=== PATIENT | male | born 1945 | race Caucasian/White ===

== ENCOUNTER 2017-05-10 07:00 | Inpatient (IN) | payer MEDICARE ==
[2017-04-25 08:46] VITALS: BP 166/83
[~2017-05-10] VITALS: Ht 185.4 cm; Wt 108.6 kg
[~2017-05-10 07:00] MED LIST: ASPI-515 PO; CALC-500 PO; CIPR500T3 PO; CITA20TA5 PO; FOLI1TAB5 PO; GEMF600T3 PO; HYDR12.58 PO; LOSA50TA6 PO; METO25TA35 PO; METO50TA82 PO; METR500T PO
[2017-05-10] MEDS ORDERED: LACTATED RINGERS 1,000 ML IV SCH (07:59)
[2017-05-10] MEDS ORDERED: LIDOCAINE 1%, 2ML SQ PRN (08:00)
[2017-05-10] MEDS ORDERED: LIDOCAINE 1%, 2ML ONE (08:05)
[2017-05-10] MEDS ORDERED: FENTANYL PF 100 MCG/2ML ONE ×3 (08:24→11:16)
[2017-05-10] MEDS ORDERED: MIDAZOLAM 1 MG/ML, 2ML ONE (08:25)
[2017-05-10] MEDS ORDERED: BUPIVACAINE/PF 0.5% ONE (08:59)
[2017-05-10] MEDS ORDERED: EPINEPHRINE 1 MG/ML, 1ML ONE (08:59)
[2017-05-10] MEDS ORDERED: CEFAZOLIN 1,000 MG ONE ×2 (09:11)
[2017-05-10] MEDS ORDERED: ROCURONIUM 10 MG/ML ONE ×2 (09:11→09:16)
[2017-05-10] MEDS ORDERED: PROPOFOL 10 MG/ML, 20ML ONE (09:11)
[2017-05-10] MEDS ORDERED: hydrALAzine 20 MG/ML, 1ML ONE ×2 (09:16→10:12)
[2017-05-10] MEDS ORDERED: hydrALAzine 20 MG/ML, 1ML IV PRN (09:30)
[2017-05-10] MEDS ORDERED: MEPERIDINE/PF 25MG/0.5ML IVPush PRN (09:30)
[2017-05-10] MEDS ORDERED: LABETALOL 5MG/ML, 20ML IV PRN (09:30)
[2017-05-10] MEDS ORDERED: PROMETHAZINE 25 MG/ML, 1ML IV PRN (09:30)
[2017-05-10] MEDS ORDERED: ONDANSETRON 2MG/ML, 2ML IVPush PRN (09:30)
[2017-05-10] MEDS ORDERED: HYDROmorphone 1 MG/ML, 1ML IV PRN (09:30)
[2017-05-10] MEDS ORDERED: OXYcodone 5 MG/5 ML ORAL.SOL UDC PO PRN (09:30)
[2017-05-10] MEDS ORDERED: ACETAMINOPHEN 325 MG TABLET PO PRN (09:30)
[2017-05-10] MEDS ORDERED: NEOSTIGMINE 1 MG/ML, 10ML ONE (09:42)
[2017-05-10] MEDS ORDERED: GLYCOPYRROLATE 0.4 MG/2 ML, 2ML ONE ×2 (09:42→11:18)
[2017-05-10] MEDS ORDERED: KETOROLAC 30 MG/1 ML ONE (11:05)
[2017-05-10] MEDS ORDERED: ACETAMINOPHEN 650 MG/20.3 ML UDC ONE (11:16)
[2017-05-10] MEDS ORDERED: OXYcodone 5 MG/5 ML ORAL.SOL UDC ONE (11:17)
[2017-05-10] MEDS: FENTANYL PF 100 MCG/2ML IV PRN ×3 (11:20→11:46)
[2017-05-10] MEDS ORDERED: KETOROLAC 30 MG/1 ML IVPush ONE (11:30)
[2017-05-10] MEDS ORDERED: GLYCOPYRROLATE 0.2MG/1ML, 5ML IVPush ONE (11:30)
== END 2017-05-10 14:30 | disposition home or self-care (01) | DRG 940 ==
LOC: ORIP 07:00
PROVIDERS: ADMIT Surgery; ATTEND Surgery
PROC: 0DP64CZ Removal of Extraluminal Device from Stomach, Percutaneous Endoscopic Approach (ICD-10-PCS; principal; 2017-05-10 09:00)
DX: Z98.84 Bariatric surgery status (principal); K91.30 Postprocedural intestinal obstruction, unspecified as to partial versus complete; I11.9 Hypertensive heart disease without heart failure; E78.00 Pure hypercholesterolemia, unspecified; K95.09 Other complications of gastric band procedure; F32.9 Major depressive disorder, single episode, unspecified; Y83.8 Other surgical procedures as the cause of abnormal reaction of the patient, or of later complication, without mention of misadventure at the time of the procedure; Z90.49 Acquired absence of other specified parts of digestive tract; Z91.041 Radiographic dye allergy status; Y92.89 Other specified places as the place of occurrence of the external cause
CPT/HCPCS: J0171; J0690; J1885; J2250; J2704; J2710; J3010; J3490; J0360; J7120

== ENCOUNTER → 2017-10-02 | Outpatient (CLI) | payer MEDICARE | END | disposition home or self-care (01) | LOC: CFH 13:32 | PROVIDERS: ATTEND Surgery | DX: K43.9 Ventral hernia without obstruction or gangrene (principal) | CPT/HCPCS: 74176 ==

== ENCOUNTER → 2017-10-05 | Outpatient (CLI) | payer MEDICARE ==
[2017-10-05 10:37] LABS: ALANINE AMINOTRANSFERASE 38 U/L (12-78); ALKALINE PHOSPHATASE 88 U/L (45-117); ANION GAP 8 mmol/L (5-15); BILIRUBIN,TOTAL 0.6 mg/dL (0.2-1.0); CALCIUM 8.8 mg/dL (8.5-10.1); CHLORIDE 108 mmol/L (98-107)
[2017-10-05 10:38] LABS: ALBUMIN 4.1 g/dL (3.4-5.0); TOTAL PROTEIN 7.2 g/dL (6.4-8.2)
== END | disposition home or self-care (01) ==
LOC: STAR 09:22
PROVIDERS: ATTEND Surgery
DX: Z01.818 Encounter for other preprocedural examination (principal); I44.5 Left posterior fascicular block; R94.31 Abnormal electrocardiogram [ECG] [EKG]
CPT/HCPCS: 36415; 80053; 93005

== ENCOUNTER 2017-10-10 06:52 | Inpatient (IN) | payer MEDICARE ==
[~2017-10-10] VITALS: Ht 185.4 cm; Wt 121.0 kg
[2017-10-10] MEDS ORDERED: LACTATED RINGERS 1,000 ML IV SCH (07:04)
[2017-10-10] MEDS ORDERED: GABAPENTIN 300 MG CAPSULE PO STA (07:14)
[2017-10-10] MEDS ORDERED: ACETAMINOPHEN 500 MG TABLET PO STA (07:14)
[2017-10-10] MEDS ORDERED: FENTANYL PF 100 MCG/2ML ONE ×2 (08:26→12:14)
[2017-10-10] MEDS ORDERED: SUCCINYLCHOLINE 20 MG/ML, 10ML ONE (08:27)
[2017-10-10] MEDS ORDERED: PROPOFOL 10 MG/ML, 20ML ONE ×2 (08:27→09:21)
[2017-10-10] MEDS ORDERED: NEOSTIGMINE 1 MG/ML, 10ML ONE (08:27)
[2017-10-10] MEDS ORDERED: DEXAMETHASONE 4 MG/ML, 1ML ONE (08:27)
[2017-10-10] MEDS ORDERED: ONDANSETRON 2MG/ML, 2ML ONE (08:27)
[2017-10-10] MEDS ORDERED: GLYCOPYRROLATE 0.2MG/1ML, 5ML ONE (08:27)
[2017-10-10] MEDS ORDERED: CEFAZOLIN 1,000 MG ONE ×2 (08:27→09:21)
[2017-10-10] MEDS ORDERED: ROCURONIUM 10 MG/ML,10ML ONE (08:27)
[2017-10-10] MEDS ORDERED: KETOROLAC 30 MG/1 ML ONE ×2 (08:31→17:08)
[2017-10-10] MEDS ORDERED: BACITRACIN 50,000 UNIT ONE (08:56)
[2017-10-10] MEDS ORDERED: EPINEPHRINE 1 MG/ML, 1ML ONE (08:56)
[2017-10-10] MEDS ORDERED: BUPIVACAINE/PF 0.5% ONE (08:56)
[2017-10-10] MEDS ORDERED: LIDOCAINE 1%, 20ML ONE (09:21)
[2017-10-10] MEDS ORDERED: BACITRACIN 50,000 UNIT IMPLANT ONE (09:51)
[2017-10-10] MEDS ORDERED: BUPIVACAINE/PF 0.5% INFIL ONE (09:52)
[2017-10-10] MEDS ORDERED: EPINEPHRINE 1 MG/ML, 1ML INFIL ONE (09:54)
[2017-10-10] MEDS ORDERED: PROMETHAZINE 12.5 MG SUPP PR PRN (10:00)
[2017-10-10] MEDS ORDERED: HYDROmorphone 1 MG/ML, 1ML IV PRN (10:00)
[2017-10-10] MEDS ORDERED: ONDANSETRON 2MG/ML, 2ML IVPush PRN ×2 (10:00→19:30)
[2017-10-10] MEDS ORDERED: MEPERIDINE/PF 25MG/0.5ML IVPush PRN (10:00)
[2017-10-10] MEDS ORDERED: METOPROLOL 1 MG/ML, 5ML IV PRN (10:00)
[2017-10-10] MEDS ORDERED: hydrALAzine 20 MG/ML, 1ML IV PRN (10:00)
[2017-10-10] MEDS ORDERED: MIDAZOLAM 1 MG/ML, 2ML IV PRN (10:00)
[2017-10-10] MEDS ORDERED: PROMETHAZINE 25 MG/ML, 1ML IV PRN (10:00)
[2017-10-10] MEDS ORDERED: ALBUTEROL/IPRATROPIUM 2.5MG/0.5MG, 3 ML NPPB PRN (10:00)
[2017-10-10] MEDS ORDERED: BUPIVACAINE/PF-EPI 0.25% 1:200K INFIL ONE (11:02)
[2017-10-10] MEDS ORDERED: GLYCOPYRROLATE 0.4 MG/2 ML, 2ML ONE (11:28)
[2017-10-10 11:50] LABS: BASOPHILS # (AUTO) 0.01 x10^3/uL (0-0.1); BASOPHILS % (AUTO) 0 % (0-1); EOSINOPHILS # (AUTO) 0.15 x10^3/uL (0-0.4); EOSINOPHILS % (AUTO) 2 % (1-7); LYMPHOCYTES # (AUTO) 1.27 x10^3/uL (1-3.4); LYMPHOCYTES % (AUTO) 16 % (22-44); MD NO; MEAN CORPUSCULAR HEMOGLOBIN 32.3 pg (27.5-34.5); MEAN CORPUSCULAR HGB CONC 33.7 g/dL (33.2-36.2); MEAN PLATELET VOLUME 7.9 fL (7.4-10.4); MONOCYTES # (AUTO) 0.13 x10^3/uL (0.2-0.8); MONOCYTES % (AUTO) 2 % (2-9); NEUTROPHILS # (AUTO) 6.21 x10^3/uL (1.8-6.8); NEUTROPHILS % (AUTO) 80 % (42-75); PLATELET COUNT 232 x10^3/uL (130-400); RED BLOOD COUNT 4.35 x10^6/uL (4.38-5.82); RED CELL DISTRIBUTION WIDTH 14.6 % (9.4-14.8)
[2017-10-10 12:02] LABS: ALANINE AMINOTRANSFERASE 28 U/L (12-78); ALBUMIN 3.7 g/dL (3.4-5.0); ANION GAP 7 mmol/L (5-15); CALCIUM 8.1 mg/dL (8.5-10.1); CHLORIDE 108 mmol/L (98-107)
[2017-10-10 12:04] LABS: ALKALINE PHOSPHATASE 71 U/L (45-117); BILIRUBIN,TOTAL 0.6 mg/dL (0.2-1.0); TOTAL PROTEIN 6.2 g/dL (6.4-8.2)
[2017-10-10 12:09] LABS: TROPONIN I < 0.015 ng/mL (0.000-0.045)
[2017-10-10] MEDS ORDERED: OXYcodone 5 MG/5 ML ORAL.SOL UDC ONE ×2 (12:14→14:16)
[2017-10-10] MEDS: FENTANYL PF 100 MCG/2ML IV PRN ×2 (12:19→14:15)
[2017-10-10] MEDS: OXYcodone 5 MG/5 ML ORAL.SOL UDC PO PRN ×2 (12:20→14:20)
[2017-10-10] MEDS: KETOROLAC 30 MG/1 ML IVPush PRN (17:11)
[2017-10-10] MEDS: D5%-LACTATED RINGERS 1,000 ML IV SCH (18:00)
[2017-10-10 19:30] VITALS: BP 104/70
[2017-10-10] MEDS ORDERED: SODIUM CHLORIDE 0.9% 1,000 ML IVBOLUS PRN (19:58)
[2017-10-10 20:28] LABS: INTERNATIONAL NORMALIZED RATIO 1.1 (0.93-1.1); PROTHROMBIN TIME 11.4 Seconds (9.6-11.5)
[2017-10-10 20:33] LABS: ALANINE AMINOTRANSFERASE 26 U/L (12-78); ALBUMIN 3.2 g/dL (3.4-5.0); ANION GAP 10 mmol/L (5-15); CALCIUM 7.7 mg/dL (8.5-10.1); CHLORIDE 109 mmol/L (98-107); CREATININE 1.27 mg/dL (0.7-1.3)
[2017-10-10 20:38] LABS: ALKALINE PHOSPHATASE 59 U/L (45-117); BILIRUBIN,TOTAL 0.6 mg/dL (0.2-1.0); TOTAL PROTEIN 5.8 g/dL (6.4-8.2); TROPONIN I < 0.015 ng/mL (0.000-0.045)
[2017-10-10 20:41] LABS: BASOPHILS # (AUTO) 0.02 x10^3/uL (0-0.1); BASOPHILS % (AUTO) 0 % (0-1); EOSINOPHILS % (AUTO) 0 % (1-7); HEMOGRAM NOTE RECHECKED; LYMPHOCYTES # (AUTO) 1.14 x10^3/uL (1-3.4); LYMPHOCYTES % (AUTO) 10 % (22-44); MD NO; MEAN CORPUSCULAR HEMOGLOBIN 32.6 pg (27.5-34.5); MEAN CORPUSCULAR HGB CONC 34.1 g/dL (33.2-36.2); MEAN CORPUSCULAR VOLUME 95.6 fL (81-97); MEAN PLATELET VOLUME 8.6 fL (7.4-10.4); MONOCYTES # (AUTO) 0.72 x10^3/uL (0.2-0.8); MONOCYTES % (AUTO) 6 % (2-9); NEUTROPHILS # (AUTO) 10.03 x10^3/uL (1.8-6.8); NEUTROPHILS % (AUTO) 84 % (42-75); PLATELET COUNT 268 x10^3/uL (130-400); RED BLOOD COUNT 3.77 x10^6/uL (4.38-5.82); RED CELL DISTRIBUTION WIDTH 14.3 % (9.4-14.8)
[2017-10-10 21:15] VITALS: BP 106/63
[2017-10-10] MEDS: LACTATED RINGERS 1,000 ML IV SCH (21:30)
[2017-10-10 22:38] LABS: HEMOGLOBIN A1C 5.8 % (4.2-6.3)
[2017-10-10] MEDS: GEMFIBROZIL 600 MG TABLET PO SCH (23:21)
[2017-10-10] MEDS: INSULIN LISPRO 100 UNITS/ML, PEN SQ-INSULIN SCH (23:22)
[2017-10-10] MEDS: SODIUM CHLORIDE 0.9% 1,000 ML IV SCH (23:22)
[2017-10-11] VITALS (9 sets, daily range): BP systolic 113–156; BP diastolic 50–80
[2017-10-11] MEDS: INSULIN LISPRO 100 UNITS/ML, PEN SQ-INSULIN SCH ×4 (07:00→21:00)
[2017-10-11] MEDS: D5%-LACTATED RINGERS 1,000 ML IV SCH (07:20)
[2017-10-11] MEDS: SODIUM CHLORIDE 0.9% 1,000 ML IV SCH ×2 (08:00→20:00)
[2017-10-11] MEDS: LACTATED RINGERS 1,000 ML IV SCH (08:08)
[2017-10-11] MEDS: LOSARTAN 50MG TABLET PO SCH (08:18)
[2017-10-11] MEDS: GEMFIBROZIL 600 MG TABLET PO SCH ×2 (08:19→20:37)
[2017-10-11] MEDS: MULTIVITAMINS/MINERALS TABLET PO SCH (08:19)
[2017-10-11] MEDS ORDERED: HYDROCHLOROTHIAZIDE 12.5 MG CAPSULE PO SCH (09:00)
[2017-10-11] MEDS: KETOROLAC 30 MG/1 ML IVPush PRN (10:29)
[2017-10-11] MEDS ORDERED: SODIUM CHLORIDE 0.9%, 500ML IVBOLUS ONE (10:30)
[2017-10-11 12:59] LABS: BASOPHILS # (AUTO) 0.01 x10^3/uL (0-0.1); BASOPHILS % (AUTO) 0 % (0-1); EOSINOPHILS # (AUTO) 0.04 x10^3/uL (0-0.4); EOSINOPHILS % (AUTO) 1 % (1-7); LYMPHOCYTES # (AUTO) 0.93 x10^3/uL (1-3.4); LYMPHOCYTES % (AUTO) 11 % (22-44); MD NO; MEAN CORPUSCULAR HEMOGLOBIN 33.1 pg (27.5-34.5); MEAN CORPUSCULAR HGB CONC 34.6 g/dL (33.2-36.2); MEAN CORPUSCULAR VOLUME 95.7 fL (81-97); MEAN PLATELET VOLUME 7.8 fL (7.4-10.4); MONOCYTES # (AUTO) 0.69 x10^3/uL (0.2-0.8); MONOCYTES % (AUTO) 8 % (2-9); NEUTROPHILS # (AUTO) 6.98 x10^3/uL (1.8-6.8); NEUTROPHILS % (AUTO) 81 % (42-75); PLATELET COUNT 215 x10^3/uL (130-400); RED BLOOD COUNT 3.09 x10^6/uL (4.38-5.82)
[2017-10-11 15:34] LABS: TROPONIN I 0.025 ng/mL (0.000-0.045)
[2017-10-11] MEDS: CITALOPRAM 20 MG TABLET PO SCH (20:37)
[2017-10-11] MEDS: CALCIUM CARBONATE 500 MG TABLET PO SCH (20:37)
[2017-10-12 01:12] VITALS: BP 112/63
[2017-10-12] MEDS: SODIUM CHLORIDE 0.9% 1,000 ML IV SCH (05:29)
[2017-10-12 05:42] LABS: BASOPHILS # (AUTO) 0.01 x10^3/uL (0-0.1); BASOPHILS % (AUTO) 0 % (0-1); EOSINOPHILS % (AUTO) 3 % (1-7); LYMPHOCYTES # (AUTO) 1.11 x10^3/uL (1-3.4); LYMPHOCYTES % (AUTO) 16 % (22-44); MD NO; MEAN CORPUSCULAR HEMOGLOBIN 32.5 pg (27.5-34.5); MEAN CORPUSCULAR HGB CONC 34.1 g/dL (33.2-36.2); MEAN CORPUSCULAR VOLUME 95.2 fL (81-97); MEAN PLATELET VOLUME 8.2 fL (7.4-10.4); MONOCYTES # (AUTO) 0.69 x10^3/uL (0.2-0.8); MONOCYTES % (AUTO) 10 % (2-9); NEUTROPHILS # (AUTO) 5.13 x10^3/uL (1.8-6.8); NEUTROPHILS % (AUTO) 72 % (42-75); PLATELET COUNT 195 x10^3/uL (130-400); RED BLOOD COUNT 2.78 x10^6/uL (4.38-5.82)
[2017-10-12 06:11] LABS: THYROID STIMULATING HORMONE 1.37 mIU/L (0.358-3.740)
[2017-10-12 06:49] VITALS: BP 109/60
[2017-10-12] MEDS: INSULIN LISPRO 100 UNITS/ML, PEN SQ-INSULIN SCH ×4 (07:00→20:29)
[2017-10-12] MEDS ORDERED: REGADENOSON 0.4 MG/5 ML SYRINGE ONE (08:43)
[2017-10-12] MEDS: LOSARTAN 50MG TABLET PO SCH (09:00)
[2017-10-12] MEDS: MULTIVITAMINS/MINERALS TABLET PO SCH (13:04)
[2017-10-12] MEDS: GEMFIBROZIL 600 MG TABLET PO SCH ×2 (13:04→20:24)
[2017-10-12] MEDS: DOCUSATE 100 MG CAPSULE PO PRN ×2 (13:04→20:38)
[2017-10-12 13:08] VITALS: BP 102/58
[2017-10-12] MEDS: OXYcodone IR 5MG TABLET PO PRN ×2 (16:55→20:38)
[2017-10-12] MEDS ORDERED: KETOROLAC 30 MG/1 ML IVPush SCH (17:30)
[2017-10-12 19:25] VITALS: BP 106/58
[2017-10-12] MEDS: CALCIUM CARBONATE 500 MG TABLET PO SCH (20:24)
[2017-10-12] MEDS: CITALOPRAM 20 MG TABLET PO SCH (20:24)
[2017-10-12] MEDS ORDERED: KETOROLAC 30 MG/1 ML IVPush PRN (23:30)
[2017-10-13 01:52] VITALS: BP 119/66
[2017-10-13 05:13] LABS: BASOPHILS # (AUTO) 0.03 x10^3/uL (0-0.1); BASOPHILS % (AUTO) 0 % (0-1); EOSINOPHILS # (AUTO) 0.32 x10^3/uL (0-0.4); EOSINOPHILS % (AUTO) 5 % (1-7); LYMPHOCYTES # (AUTO) 1.28 x10^3/uL (1-3.4); LYMPHOCYTES % (AUTO) 19 % (22-44); MD NO; MEAN CORPUSCULAR HEMOGLOBIN 32.9 pg (27.5-34.5); MEAN CORPUSCULAR HGB CONC 34.5 g/dL (33.2-36.2); MEAN CORPUSCULAR VOLUME 95.5 fL (81-97); MEAN PLATELET VOLUME 7.7 fL (7.4-10.4); MONOCYTES # (AUTO) 0.67 x10^3/uL (0.2-0.8); MONOCYTES % (AUTO) 10 % (2-9); NEUTROPHILS # (AUTO) 4.48 x10^3/uL (1.8-6.8); NEUTROPHILS % (AUTO) 66 % (42-75); PLATELET COUNT 210 x10^3/uL (130-400); RED BLOOD COUNT 2.68 x10^6/uL (4.38-5.82); RED CELL DISTRIBUTION WIDTH 14.4 % (9.4-14.8)
[2017-10-13 05:15] LABS: ALBUMIN 3.4 g/dL (3.4-5.0); ANION GAP 8 mmol/L (5-15); CALCIUM 8.9 mg/dL (8.5-10.1); CHLORIDE 104 mmol/L (98-107)
[2017-10-13 05:20] LABS: ALANINE AMINOTRANSFERASE 22 U/L (12-78); ALKALINE PHOSPHATASE 63 U/L (45-117); BILIRUBIN,TOTAL 0.6 mg/dL (0.2-1.0); CREATININE 0.83 mg/dL (0.7-1.3); TOTAL PROTEIN 6.4 g/dL (6.4-8.2)
[2017-10-13] MEDS: OXYcodone IR 5MG TABLET PO PRN ×4 (05:29→20:16)
[2017-10-13 06:47] VITALS: BP 123/69
[2017-10-13] MEDS: INSULIN LISPRO 100 UNITS/ML, PEN SQ-INSULIN SCH ×4 (07:00→19:56)
[2017-10-13] MEDS: MULTIVITAMINS/MINERALS TABLET PO SCH (08:42)
[2017-10-13] MEDS: GEMFIBROZIL 600 MG TABLET PO SCH ×2 (08:42→19:55)
[2017-10-13] MEDS: CITALOPRAM 20 MG TABLET PO SCH (08:42)
[2017-10-13] MEDS: CALCIUM CARBONATE 500 MG TABLET PO SCH (08:42)
[2017-10-13] MEDS: LOSARTAN 50MG TABLET PO SCH (08:42)
[2017-10-13] MEDS: DOCUSATE 100 MG CAPSULE PO PRN (08:48)
[2017-10-13 13:59] VITALS: BP 112/67
[2017-10-13] MEDS ORDERED: BISACODYL 5 MG EC TABLET PO PRN (16:30)
[2017-10-13 19:37] VITALS: BP 112/61
[2017-10-14 02:11] VITALS: BP 123/79
[2017-10-14] MEDS ORDERED: HYDR-882 PO (03:28)
[2017-10-14 05:11] LABS: ANION GAP 7 mmol/L (5-15); CALCIUM 8.7 mg/dL (8.5-10.1); CHLORIDE 104 mmol/L (98-107); CREATININE 0.86 mg/dL (0.7-1.3)
[2017-10-14] MEDS: INSULIN LISPRO 100 UNITS/ML, PEN SQ-INSULIN SCH (05:13)
[2017-10-14] MEDS: OXYcodone IR 5MG TABLET PO PRN ×2 (05:17→10:01)
[2017-10-14 09:24] VITALS: BP 136/75
[2017-10-14] MEDS: LOSARTAN 50MG TABLET PO SCH (10:01)
[2017-10-14] MEDS: CITALOPRAM 20 MG TABLET PO SCH (10:01)
[2017-10-14] MEDS: GEMFIBROZIL 600 MG TABLET PO SCH (10:01)
[2017-10-14] MEDS: MULTIVITAMINS/MINERALS TABLET PO SCH (10:01)
[2017-10-14] MEDS: CALCIUM CARBONATE 500 MG TABLET PO SCH (10:01)
[2017-10-14] MEDS: DOCUSATE 100 MG CAPSULE PO PRN (10:02)
== END 2017-10-14 11:50 | disposition home or self-care (01) | DRG 354 ==
LOC: OUT 06:52 → ORIP 18:00 → 4NOR 19:15 → 5SO 21:07 → OBSVTOIN 10-12 15:44 → 4NOR 10-13 14:54
PROVIDERS: ADMIT Surgery; ATTEND Surgery
PROC: 0WUF4JZ Supplement Abdominal Wall with Synthetic Substitute, Percutaneous Endoscopic Approach (ICD-10-PCS; principal; 2017-10-10 09:00)
DX: K43.2 Incisional hernia without obstruction or gangrene (principal); D62 Acute posthemorrhagic anemia; I25.10 Atherosclerotic heart disease of native coronary artery without angina pectoris; I95.9 Hypotension, unspecified; R00.1 Bradycardia, unspecified; R73.9 Hyperglycemia, unspecified; E78.2 Mixed hyperlipidemia; G47.33 Obstructive sleep apnea (adult) (pediatric); F32.9 Major depressive disorder, single episode, unspecified; E78.00 Pure hypercholesterolemia, unspecified; Z96.612 Presence of left artificial shoulder joint; Z96.651 Presence of right artificial knee joint; I10 Essential (primary) hypertension; I25.2 Old myocardial infarction; Z80.8 Family history of malignant neoplasm of other organs or systems; Z82.49 Family history of ischemic heart disease and other diseases of the circulatory system; Z82.5 Family history of asthma and other chronic lower respiratory diseases; Z83.3 Family history of diabetes mellitus; Z86.718 Personal history of other venous thrombosis and embolism; Z87.891 Personal history of nicotine dependence; Z95.1 Presence of aortocoronary bypass graft; Z90.49 Acquired absence of other specified parts of digestive tract; Z91.041 Radiographic dye allergy status; S30.1XXA Contusion of abdominal wall, initial encounter
CPT/HCPCS: 36415; 71046; 78452; 80048; 80053; 82962; 83036; 83735; 83880; 84443; 84481; 84484; 85014; 85018; 85025; 85610; 85730; 86850; 86900; 93005; 93017; 93306; G0378; J0171; J0690; J1100; J1885; J2405; J2704; J2710; J2785; J3010; J3490; A9502; C1781; C9898; J0330; J1815; J7030; J7040; J7120

== ENCOUNTER → 2018-10-10 | Outpatient (CLI) | payer MEDICARE ==
[~2018-10-10] MED LIST changes: -CITA20TA5 PO; +CITA20TA6 PO; -GEMF600T3 PO; +GEMF600T8 PO; +HYDR-3653 PO; -HYDR12.58 PO; +HYDROCHLOROTH12.5 MG PO; +LOSA50TA14 PO; -LOSA50TA6 PO; +REGADENOSON 0.4 MG/5 ML SYRINGE ONE
== END | disposition home or self-care (01) ==
LOC: CFH 08:54
PROVIDERS: ATTEND Nurse Practitioner Family
DX: R07.9 Chest pain, unspecified (principal); R00.1 Bradycardia, unspecified
CPT/HCPCS: 78452; 93017; A9502; J2785

== ENCOUNTER → 2019-09-30 | Outpatient (CLI) | payer MEDICARE ==
[~2019-09-30] MED LIST changes: -REGADENOSON 0.4 MG/5 ML SYRINGE ONE
== END | disposition home or self-care (01) ==
LOC: CFH 14:47
PROVIDERS: ATTEND Internal Medicine Cardiovascular Disease
DX: M10.9 Gout, unspecified (principal); E78.2 Mixed hyperlipidemia
CPT/HCPCS: 36415; 84550

== ENCOUNTER 2019-11-12 12:37 | Outpatient (CLI) | payer MEDICARE ==
[2019-11-12] MEDS ORDERED: REGADENOSON 0.4 MG/5 ML SYRINGE ONE (15:21)
== END 2019-11-12 23:59 | disposition home or self-care (01) ==
LOC: CFH 12:37
PROVIDERS: ATTEND Internal Medicine Cardiovascular Disease
DX: I50.20 Unspecified systolic (congestive) heart failure (principal); R00.1 Bradycardia, unspecified; I10 Essential (primary) hypertension
CPT/HCPCS: 78452; 93017; A9502; J2785

== ENCOUNTER 2019-12-23 10:12 | Day surgery (SDC) | payer MEDICARE ==
[~2019-12-23] VITALS: Ht 185.4 cm; Wt 113.6 kg
[2019-12-23] MEDS ORDERED: METO25TA91 PO (11:26)
[2019-12-23] MEDS ORDERED: AMLO-150 PO (11:26)
[2019-12-23] MEDS ORDERED: INDO75CA3 PO (11:26)
[2019-12-23] MEDS ORDERED: IRBE300T8 PO (11:26)
[2019-12-23] MEDS ORDERED: ALLO100T30 PO (11:26)
[2019-12-23] MEDS ORDERED: ALLOPURINOL (11:26)
[2019-12-23] MEDS ORDERED: methylPREDNISolone SOD SUCC 125 MG/2 ML IVPush ONE (11:30)
[2019-12-23] MEDS ORDERED: PLEASE ENTER HEIGHT AND WEIGHT MC SCH (11:30)
[2019-12-23] MEDS ORDERED: DIPHENHYDRAMINE 50 MG/ML, 1ML IVPush ONE (11:30)
[2019-12-23] MEDS ORDERED: methylPREDNISolone SOD SUCC 125 MG/2 ML ONE (11:32)
[2019-12-23] MEDS ORDERED: DIPHENHYDRAMINE 50 MG/ML, 1ML ONE (11:32)
[2019-12-23] MEDS ORDERED: ASPI81TA45 PO (11:33)
[2019-12-23] MEDS ORDERED: MAGN400T36 PO (11:33)
[2019-12-23] MEDS ORDERED: DORZ10DR26 LEFTEYE (11:33)
[2019-12-23] MEDS ORDERED: BRIM5DRO3 EACHEYE (11:33)
[2019-12-23] MEDS ORDERED: BRIM5DRO4 LEFTEYE (11:33)
[2019-12-23] MEDS ORDERED: LATA7.5D LEFTEYE (11:33)
[2019-12-23] MEDS ORDERED: TYLENOL PM PO (11:33)
[2019-12-23 11:35] LABS: BASOPHILS # (AUTO) 0.02 x10^3/uL (0-0.1); BASOPHILS % (AUTO) 0 % (0-1); EOSINOPHILS % (AUTO) 4 % (1-7); LYMPHOCYTES # (AUTO) 1.22 x10^3/uL (1-3.4); LYMPHOCYTES % (AUTO) 27 % (22-44); MD NO; MEAN CORPUSCULAR HEMOGLOBIN 32.4 pg (27.5-34.5); MEAN CORPUSCULAR HGB CONC 33.7 g/dL (33.2-36.2); MEAN CORPUSCULAR VOLUME 96.1 fL (81-97); MEAN PLATELET VOLUME 8.2 fL (7.4-10.4); MONOCYTES # (AUTO) 0.38 x10^3/uL (0.2-0.8); MONOCYTES % (AUTO) 8 % (2-9); NEUTROPHILS # (AUTO) 2.78 x10^3/uL (1.8-6.8); NEUTROPHILS % (AUTO) 60 % (42-75); PLATELET COUNT 230 x10^3/uL (130-400); RED BLOOD COUNT 4.61 x10^6/uL (4.38-5.82); RED CELL DISTRIBUTION WIDTH 14.2 % (9.4-14.8)
[2019-12-23] MEDS ORDERED: MIDAZOLAM 1 MG/ML, 5ML ONE (11:37)
[2019-12-23] MEDS ORDERED: FENTANYL PF 100 MCG/2ML ONE (11:37)
[2019-12-23] MEDS ORDERED: LIDOCAINE 1%, 20ML ONE (11:37)
[2019-12-23 11:39] VITALS: BP 155/86
[2019-12-23 11:44] LABS: ANION GAP 7 mmol/L (5-15); CALCIUM 9.1 mg/dL (8.5-10.1); CHLORIDE 111 mmol/L (98-107); CREATININE 0.86 mg/dL (0.7-1.3)
[2019-12-23] MEDS ORDERED: HEPARIN 1,000 UNITS/ML, 10ML ONE (12:28)
[2019-12-23] MEDS ORDERED: hydrALAzine 20 MG/ML, 1ML ONE (13:28)
[2019-12-23] MEDS ORDERED: SODIUM CHLORIDE 0.9% 1,000 ML IV SCH (13:30)
[2019-12-23] MEDS ORDERED: OXYcodone/APAP 5/325MG TABLET PO ONE (15:00)
== END 2019-12-23 17:33 | disposition home or self-care (01) ==
LOC: CACL 10:12 → 5SO 15:55 → CACL 17:33
PROVIDERS: ATTEND Internal Medicine Cardiovascular Disease
DX: R00.1 Bradycardia, unspecified (principal); I25.718 Atherosclerosis of autologous vein coronary artery bypass graft(s) with other forms of angina pectoris; I25.118 Atherosclerotic heart disease of native coronary artery with other forms of angina pectoris; I25.82 Chronic total occlusion of coronary artery; I10 Essential (primary) hypertension; E78.5 Hyperlipidemia, unspecified; Z79.899 Other long term (current) drug therapy; Z85.828 Personal history of other malignant neoplasm of skin; Z91.041 Radiographic dye allergy status
CPT/HCPCS: 36415; 80048; 85025; 93455; C1760; C1769; C1894; J0360; J1200; J1644; J2250; J2930; J3010; Q9967; 99156; 99157; G0378